=== PATIENT | male | born 1975 | race Hispanic/Latino ===

== ENCOUNTER 2019-01-06 21:35 | Emergency (ER) | payer MEDICARE ==
[~2019-01-06 21:35] MED LIST: Glyburide PO; HYDR-3971 PO; lantus insulin SQ; metformin PO
[2019-01-06] MEDS ORDERED: DIAZEPAM 5 MG TABLET ONE (22:16)
[2019-01-06 22:21] LABS: BASOPHILS % (AUTO) 0.6 % (0.0-5.0); EOSINOPHILS % (AUTO) 4.1 % (0.0-8.0); HEMATOCRIT 41.9 % (42-54); LYMPHOCYTES % (AUTO) 32.8 % (21.0-51.0); MEAN CORPUSCULAR HEMOGLOBIN 31.1 pg (27.0-33.0); MEAN CORPUSCULAR HGB CONC 34.1 g/dL (32.0-36.0); MEAN CORPUSCULAR VOLUME 91.3 fL (79-99); MONOCYTES % (AUTO) 5.9 % (3.0-13.0); NEUTROPHILS % (AUTO) 56.6 % (40.0-77.0); PLATELET COUNT (AUTO) 249 K/uL (130-400); RED BLOOD CELL COUNT(AUTO) 4.59 MIL/uL (4.50-6.20); RED CELL DISTRIBUTION WIDTH 12.7 % (11.0-15.5); WHITE BLOOD COUNT (AUTO) 6.6 K/uL (4.8-10.8)
[2019-01-06 22:28] LABS: CARBON DIOXIDE 27 mmol/L (21-32); CHLORIDE 104 mmol/L (101-111); CREATININE 0.9 mg/dL (0.5-1.5); GLOMERULAR FILTR. RATE CALC 99 mL/min (>60); GLUCOSE,RANDOM 180 mg/dL (70-105); SODIUM SERUM 139 mmol/L (136-145); UREA NITROGEN, BLOOD 20 mg/dL (7-18)
[2019-01-06 22:33] LABS: ALANINE AMINOTRANSFERASE 38 U/L (12-78); ALBUMIN 3.4 g/dL (3.5-5.0); ASPARTATE AMINOTRANSFERASE 25 U/L (10-37); BILIRUBIN,DIRECT < 0.1 mg/dL (0.0-0.3); BILIRUBIN,TOTAL 0.3 mg/dL (0.2-1.0); CREATINE KINASE, TOTAL 51 U/L (21-232); TOTAL PROTEIN, SERUM 6.6 g/dL (6.0-8.3)
[2019-01-06] MEDS ORDERED: PROCHLORPERAZINE EDISYLATE 10 MG/2 ML VIAL ONE (23:12)
[2019-01-06 23:22] LABS: B-TYPE NATRIURETIC PEPTIDE 8 pg/mL (0-100)
[2019-01-07] MEDS ORDERED: MORPHINE SULFATE 4 MG/1ML SYG ONE (02:08)
== END 2019-01-07 03:01 | disposition home or self-care (01) ==
LOC: EDH 21:35
DX: R51 Headache (principal); R20.2 Paresthesia of skin; R20.0 Anesthesia of skin; E11.9 Type 2 diabetes mellitus without complications; G89.29 Other chronic pain; M54.9 Dorsalgia, unspecified; Z86.73 Personal history of transient ischemic attack (TIA), and cerebral infarction without residual deficits; Z98.890 Other specified postprocedural states; Z72.0 Tobacco use
CPT/HCPCS: 36415; 70450; 70496; 70498; 71045; 80048; 80076; 82550; 83880; 84484; 85025; 93005; 96374; 96375; 99285; J0780; J2270